=== PATIENT | female | born 1935 | race Caucasian/White ===

== ENCOUNTER → 2018-10-28 | Outpatient (CLI) | payer MEDICARE, MEDICAID ==
--- NOTE | 2018-10-28 15:36 | REP ---
HISTORY: Carotid arterial disease. COMPARISON: None. Patient is status post left endarterectomy. Echogenic material is seen along the carotid arterial fontenot including the imaged portion of the graft. Some of this echogenic material casts an acoustic shadow consistent with calcific deposition. RIGHT LEFT CCA systolic 105.3 cm/s 64.4 cm/s CCA diastolic 15.0 cm/s 23.7 cm/s ICA systolic 63.9 cm/s 79.1 cm/s ICA diastolic 16.0 cm/s 25.0 cm/s ICA/CCA ratio 0.6 1.2 Analysis of the spectral tracing shows no significant spectral broadening. Antegrade flow is seen in both vertebral arteries. According to the NASCET consensus criteria there is less than 50% stenosis of the internal carotid artery bilaterally which incudes the graft portion on the left. Electronically Signed by Main Elkins DO 10/28/2018 04:35 P
== END ==
LOC: M RAD 10:58
PROVIDERS: ATTEND Internal Medicine Cardiovascular Disease
DX: Z86.79 Personal history of other diseases of the circulatory system (principal)

== ENCOUNTER 2019-01-05 14:53 | Emergency (ER) | payer MEDICARE, MEDICAID ==
[~2019-01-05] VITALS: Ht 154.9 cm; Wt 52.3 kg
[2019-01-05] MEDS ORDERED: GABA-843 (15:11)
[2019-01-05] MEDS ORDERED: AMLO5TAB6 (15:11)
[2019-01-05] MEDS ORDERED: POTA10CA32 (15:11)
[2019-01-05] MEDS ORDERED: ISOS30TA4 (15:11)
[2019-01-05] MEDS ORDERED: SPIR1CAP (15:11)
[2019-01-05] MEDS ORDERED: CLOP75TA2 (15:11)
[2019-01-05] MEDS ORDERED: ZYLO300T6 (15:11)
[2019-01-05] MEDS ORDERED: ATOR40TA75 (15:11)
[2019-01-05] MEDS ORDERED: ASPI81TA85 PO (15:11)
[2019-01-05] MEDS ORDERED: FURO20TA2 (15:11)
[2019-01-05] MEDS ORDERED: PROAAER10 (15:11)
[2019-01-05] MEDS ORDERED: LISI10TA4 (15:11)
[2019-01-05] MEDS ORDERED: ASPIRIN 81 MG CHEW TABLET PO ONE (15:30)
[2019-01-05] MEDS ORDERED: NS 1,000 ML IV ONE (15:30)
[2019-01-05 15:38] LABS: VENOUS BASE EXCESS 3.4 (-2.0-2.0); VENOUS HCO3 26.2 MEQ/L (23.0-27.0); VENOUS O2 SATURATION 98.9 % (60.0-80.0); VENOUS PARTIAL PRESSURE CO2 33.4 mmHg (38.0-50.0); VENOUS PARTIAL PRESSURE O2 136.7 mmHg (30.0-50.0); VENOUS PH 7.513 UNITS (7.330-7.430); VENOUS STANDARD HCO3 27.5 MEQ/L; VENOUS TOTAL CO2 27.3 MEQ/L (24.0-28.0)
[2019-01-05 15:41] LABS: BASO % 0.5 % (0.0-1.0); EOS # 0.1 10^3/uL (0.0-0.50); EOS % 1.4 % (0.0-3.0); HEMATOCRIT 27.8 % (36.0-47.0); LYMPH # 0.9 10^3/uL (1.5-4.5); LYMPH % 11.3 % (24.0-44.0); MEAN CORPUSCULAR HEMOGLOBIN 31.3 pg (27.0-33.0); MEAN CORPUSCULAR HGB CONC 32.4 g/dl (32.0-36.5); MEAN CORPUSCULAR VOLUME 96.5 fl (80.0-96.0); MONO # 0.5 10^3/uL (0.0-0.8); NEUTROPHILS # 6.5 10^3/uL (1.8-7.7); NEUTROPHILS % 80.4 % (36.0-66.0); PLATELET COUNT, AUTOMATED 182 10^3/uL (150-450); RED BLOOD COUNT 2.88 10^6/uL (4.00-5.40); WHITE BLOOD COUNT 8.1 10^3/uL (4.0-10.0)
[2019-01-05 15:57] LABS: INR 1.07; PROTHROMBIN TIME 13.6 SECONDS (11.8-14.0)
[2019-01-05 16:14] LABS: ALBUMIN 3.1 GM/DL (3.2-5.2); ALT/SGPT 16 U/L (12-78); BILIRUBIN,DIRECT < 0.1 MG/DL (0.0-0.2); BILIRUBIN,TOTAL 0.2 MG/DL (0.2-1.0); BLOOD UREA NITROGEN 17 MG/DL (7-18); CALCIUM LEVEL 8.3 MG/DL (8.8-10.2); CARBON DIOXIDE LEVEL 27 MEQ/L (21-32); CHLORIDE LEVEL 104 MEQ/L (98-107); CK-MB VALUE MASS 1.9 NG/ML (<3.6); CPK CREATINE PHOSPHOKINASE 44 U/L (26-192); CREATININE FOR GFR 0.87 MG/DL (0.55-1.30); FREE T4 0.99 NG/DL (0.76-1.46); GLOMERULAR FILTRATION RATE > 60.0 (>32); GLUCOSE, FASTING 128 MG/DL (70-100); LIPASE 145 U/L (73-393); MB/CK RELATIVE INDEX 4.32 (< OR =4); SODIUM LEVEL 139 MEQ/L (136-145); TOTAL PROTEIN 5.7 GM/DL (6.4-8.2); TROPONIN I 0.25 NG/ML (< 0.10)
[2019-01-05] MEDS ORDERED: IPRATROPIUM 0.5MG/ALBUTEROL 2.5MG INH SOL UD 3ML (DUONEB)(J7620) NEB ONE (16:15)
[2019-01-05 16:50] LABS: MAGNESIUM LEVEL 1.8 MG/DL (1.8-2.4)
--- NOTE | 2019-01-05 17:01 | ECGEPIP ---
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
--- NOTE | 2019-01-05 17:31 | REP ---
CHEST, SINGLE VIEW: Single view of the chest is performed. There are no prior studies for comparison. There is mild cardiomegaly. There are mildly increased interstitial markings in the lung bases suggesting mild interstitial edema or fibrosis. No consolidating infiltrate is seen. There is calcification and tortuosity of the thoracic aorta. The mediastinal silhouette is otherwise unremarkable. Multiple sternal wires are present. There is a single lead pacemaker. IMPRESSION: Mild cardiomegaly. Mild bibasilar interstitial edema or fibrosis. Electronically Signed by Cuong Acuña MD 01/06/2019 11:09 A
[2019-01-05] MEDS ORDERED: BISOPROLOL FUMARATE 5 MG TAB PO ONE (17:45)
[2019-01-05 18:00] VITALS: BP 139/78
[2019-01-05] MEDS ORDERED: BISO5TAB5 PO (18:23)
[2019-01-05 18:27] VITALS: BP 139/78
== END 2019-01-05 18:35 | disposition home or self-care (01) ==
LOC: M ED 14:53
DX: I11.9 Hypertensive heart disease without heart failure (principal); J44.9 Chronic obstructive pulmonary disease, unspecified; Z79.51 Long term (current) use of inhaled steroids; Z79.82 Long term (current) use of aspirin; Z79.899 Other long term (current) drug therapy; Z88.6 Allergy status to analgesic agent; Z95.0 Presence of cardiac pacemaker; Z95.1 Presence of aortocoronary bypass graft

== ENCOUNTER 2019-01-28 09:06 | Outpatient (CLI) | payer MEDICARE, MEDICAID ==
[~2019-01-28] VITALS: Ht 157.5 cm; Wt 65.5 kg
[2019-01-28] VITALS (8 sets, daily range): BP systolic 108–146; BP diastolic 52–66
[~2019-01-28 09:06] MED LIST: AMLO5TAB6; ASPI81TA85 PO; ATOR40TA75; BISO5TAB5 PO; CLOP75TA2; FURO20TA2; GABA-843; ISOS30TA4; LISI10TA4; POTA10CA32; PROAAER10; SPIR1CAP; ZYLO300T6
[2019-01-28] MEDS ORDERED: IRON SUCROSE 25 MG in NS 50 ML IV ONE (10:00)
[2019-01-28] MEDS ORDERED: IRON SUCROSE 475 MG in NS 250 ML IV ONE (11:00)
[2019-01-28] MEDS ORDERED: ONDANSETRON 4 MG TAB (S0181) PO ONE (14:45)
== END 2019-01-28 15:30 | disposition home or self-care (01) ==
LOC: M INFU 09:06
PROVIDERS: ATTEND Internal Medicine Cardiovascular Disease
DX: D50.9 Iron deficiency anemia, unspecified (principal); Z79.899 Other long term (current) drug therapy
CPT/HCPCS: 96365; 96366; J1756

== ENCOUNTER 2019-04-24 21:08 | Inpatient (IN) | payer MEDICARE, MEDICAID ==
[~2019-04-24] VITALS: Ht 157.5 cm; Wt 50.7 kg
[~2019-04-24 21:08] MED LIST changes: -AMLO5TAB6; +AMLO5TAB6 PO; -ATOR40TA75; +ATOR40TA75 PO; -BISO5TAB5 PO; +BISO5TAB9 PO; -CLOP75TA2; +CLOP75TA2 PO; -FURO20TA2; +FURO20TA2 PO; -GABA-843; +GABA-843 PO; -LISI10TA4; +LISI10TA4 PO; -POTA10CA32; +POTA10CA32 PO; -PROAAER10; +PROAAER10 INH; -SPIR1CAP; +SPIR1CAP INH; -ZYLO300T6; +ZYLO300T6 PO
[2019-04-24] MEDS ORDERED: METF500T13 PO (21:19)
[2019-04-24] MEDS ORDERED: OMEP-218 (21:19)
[2019-04-24] MEDS ORDERED: NS 500 ML IV ONE (21:45)
[2019-04-24 21:56] LABS: BASO % 0.5 % (0.0-1.0); EOS # 0.2 10^3/uL (0.0-0.5); EOS % 2.2 % (0.0-3.0); LYMPH # 1.9 10^3/uL (1.5-5.0); LYMPH % 24.9 % (24.0-44.0); MEAN CORPUSCULAR HEMOGLOBIN 30.9 pg (27.0-33.0); MEAN CORPUSCULAR HGB CONC 32.5 g/dl (32.0-36.5); MONO # 0.5 10^3/uL (0.0-0.8); MONO % 6.9 % (0.0-5.0); NEUTROPHILS # 5.1 10^3/uL (1.5-8.5); NEUTROPHILS % 65.2 % (36.0-66.0); PLATELET COUNT, AUTOMATED 175 10^3/uL (150-450); RED BLOOD COUNT 4.21 10^6/uL (4.00-5.40); WHITE BLOOD COUNT 7.8 10^3/uL (4.0-10.0)
[2019-04-24 22:11] LABS: INR 1.02; PROTHROMBIN TIME 13.1 SECONDS (11.8-14.0)
[2019-04-24 22:12] LABS: PARTIAL THROMBOPLASTIN TIME 26.6 SECONDS (25.0-38.4)
[2019-04-24 22:21] LABS: BLOOD UREA NITROGEN 19 MG/DL (7-18); CALCIUM LEVEL 9.8 MG/DL (8.8-10.2); CARBON DIOXIDE LEVEL 29 MEQ/L (21-32); CHLORIDE LEVEL 103 MEQ/L (98-107); CREATININE FOR GFR 0.77 MG/DL (0.55-1.30); GLOMERULAR FILTRATION RATE > 60.0 (>32); GLUCOSE, FASTING 115 MG/DL (70-100); POTASSIUM SERUM 4.3 MEQ/L (3.5-5.1); SODIUM LEVEL 141 MEQ/L (136-145)
[2019-04-24 22:22] LABS: ALBUMIN 3.7 GM/DL (3.2-5.2); ALT/SGPT 15 U/L (12-78); BILIRUBIN,DIRECT < 0.1 MG/DL (0.0-0.2); BILIRUBIN,TOTAL 0.3 MG/DL (0.2-1.0); CK-MB VALUE MASS 1.1 NG/ML (<3.6); CPK CREATINE PHOSPHOKINASE 49 U/L (26-192); LIPASE 155 U/L (73-393); MB/CK RELATIVE INDEX 2.24 (< OR =4); TROPONIN I 0.02 NG/ML (< 0.10)
[2019-04-24] MEDS ORDERED: NS 1,000 ML IV SCH (23:30)
[2019-04-24] MEDS ORDERED: NITR0.4S14 SL (23:33)
[2019-04-24] MEDS ORDERED: ACET-897 PO (23:33)
[2019-04-24] MEDS ORDERED: BISO5TAB9 PO (23:33)
[2019-04-24] MEDS ORDERED: MOVE1TAB PO (23:34)
[2019-04-25] VITALS (7 sets, daily range): BP systolic 125–169; BP diastolic 57–75
--- NOTE | 2019-04-25 00:38 | HPEPDOC ---
[facility] Medical History & Physical Date of Admission Apr 24, 2019 Date of Service: Apr 24, 2019 Attending Physician: JONNY DAWSON MD History and Physical CHIEF COMPLAINT: GI bleed HISTORY OF PRESENT ILLNESS: This is a 83-year-old female with a past medical history of iron deficiency anemia, diabetes, CAD, hypertension, COPD, AICD placement, cardiac stents, last month was September 2018. She is currently on aspirin and Plavix. This afternoon she felt like she had to use the bathroom, during her attempt to use the bathroom, she noticed that she had norma red blood per rectum. She denied any abdominal pain, admits to history of occasional constipation, denies any recent dietary changes, denies dizziness, denies nausea, denies vomiting, denies hemoptysis, denies lightheadedness, denies palpitation, denies any overt bleeding, and denies any bruising. ROS CONSTITUTIONAL: No fevers, denies chills, denies weight loss, denies lethargy HEENT: No rhinorrhea, no itchy eyes, no congesion, CARDIOVASCULAR: No murmurs no palpitations and arrhythmias RESPIRATORY: Not cough, No SOB, no issues to report GASTROINTESTINAL: No nausea, no vomiting, no difficulty swallowing, no pain with eating, no diarrhea, one episode of norma red blood per rectum HEMATOLOGICAL: Blood per rectum GENITOURINARY:No Issues HEMATOLOGIC/LYMPHATIC: No swelling PAST MEDICAL / SURGICAL HISTORY: GERD Chronic hypertension, Iron deficiency anemia Diabetes Chronic CAD / status post cardiac stents COPD s/p AICD / pacemaker ? Glaucoma s/p endarterectomy s/p cataracts surgery s/p cardiac bypass SOCIAL HISTORY: Lives at home with her daughter FAMILY HISTORY: HTN CAD TB ALLERGIES: Please see below. HOME MEDICATIONS: Please see below. PE VITALS: See Below GENERAL APPEARANCE: Alert no acute distress. , Pleasant, elderly female SKIN: Warm, well perfused. Non-pale LUNGS: Clear to auscultation bilaterally. HEART: Normal S1, S2. cardiac murmurs ABDOMEN: Soft. No masses. Bowel sounds are present. TRUNK/SPINE:Straight. EXTREMITIES: Moves all extremities equally. No gross deformities. PULSES: 2+ upper and lower extremity . LABORATORY DATA: See below. MICROBIOLOGY: Please see below. ASSESSMENT/PLAN: This is an 83-year-old female with a past medical history significant for iron deficiency anemia, coronary artery disease, chronic HTN, DM, COPD and GERD who is admitted for management of a GI bleed. 1. Upper GI bleed -Patient reported melena earlier in the week -Does not appear to have ongoing active bleeding -Hg and MAP are stable -Monitor H&H. -Transfuse necessary 2.Chronic Hypertension. Continue home medication 3.Chronic Coronary artery disease -status post cardiac stents in September of 218 -Continue Plavix and aspirin 4. COPD -Continue home medications DVT prophylaxis w TEDs Disposition pending clinical course Vital Signs Vital Signs Date Time Temp Pulse Resp B/P (MAP) Pulse Ox O2 Delivery O2 Flow Rate FiO2 04/24/19 21:50 04/24/19 21:08 97.0 69 18 97 Room Air Laboratory Data Labs 24H Laboratory Tests 2 04/24/19 21:49: Immature Granulocyte % (Auto) 0.3, Neutrophils (%) (Auto) 65.2, Lymphocytes (%) (Auto) 24.9, Monocytes (%) (Auto) 6.9H, Eosinophils (%) (Auto) 2.2, Basophils (%) (Auto) 0.5, Neutrophils # (Auto) 5.1, Lymphocytes # (Auto) 1.9, Monocytes # (Auto) 0.5, Eosinophils # (Auto) 0.2, Basophils # (Auto) 0.0, Nucleated Red Blood Cells % (auto) 0.0, Prothrombin Time 13.1, Prothromb Time International Ratio 1.02, Activated Partial Thromboplast Time 26.6, Anion Gap 9, Glomerular Filtration Rate > 60.0, Calcium Level 9.8, Total Bilirubin 0.3, Direct Bilirubin < 0.1, Aspartate Amino Transf (AST/SGOT) 15, Alanine Aminotransferase (ALT/SGPT) 15, Alkaline Phosphatase 124H, Total Creatine Kinase 49, Creatine Kinase MB 1.1, Creatine Kinase MB Relative Index 2.24, Troponin I 0.02, Total Protein 7.0, Albumin 3.7, Albumin/Globulin Ratio 1.12, Lipase 155 CBC/BMP Laboratory Tests 04/24/19 21:49 Home Medications Scheduled Allopurinol (Zyloprim) 300 Mg Tablet, 300 MG PO DAILY AT LUNCH Amlodipine Besylate (Amlodipine Besylate) 5 Mg Tablet, 5 MG PO QPM AT DINNER Aspirin (Aspir 81) 81 Mg Tablet.dr, 81 MG PO DAILY Atorvastatin Calcium (Atorvastatin Calcium) 40 Mg Tablet, 40 MG PO QPM Bisoprolol Fumarate (Bisoprolol Fumarate) 5 Mg Tablet, 5 MG PO DAILY AT LUNCH Clopidogrel Bisulfate (Clopidogrel) 75 Mg Tablet, 75 MG PO DAILY AT LUNCH Docusate Sodium (Docusate Sodium) 100 Mg Capsule, 100 MG PO DAILY for constipation Furosemide (Furosemide) 20 Mg Tablet, 20 MG PO BID BREAKFAST AND DINNER Glucosam/Chond/Hyalu/Cf Borate (Move Free Joint Health Tablet) 1 Each Tablet, 1 TAB PO DAILY Lisinopril (Lisinopril) 10 Mg Tablet, 10 MG PO DAILY AT LUNCH Metformin HCl (Metformin HCl) 500 Mg Tablet, 500 MG PO DAILY Potassium Chloride (Potassium Chloride) 10 Meq Capsule.er, 10 MEQ PO BID BREAKFAST AND DINNER Sennosides (Senna) 8.6 Mg Tablet, 2 TAB PO QHS for constipation Tiotropium [place] (Spiriva) 18 Mcg Cap.w.dev, 1 PUFF INH DAILY Scheduled PRN Acetaminophen (Tylenol Extra Strength) 500 Mg Tablet, 500 MG PO QHS PRN for PAIN TAKES WITH GABAPENTIN Albuterol Sulfate (Proair Hfa) 8.5 Gm Hfa.aer.ad, 2 PUFF INH Q4H PRN for SOB/WHEEZING Gabapentin (Gabapentin) 300 Mg Capsule, 600 MG PO QHS PRN for PAIN TAKES ONE OR TWO CAPS WITH ACETAMINOPHEN PRN Nitroglycerin (Nitroglycerin) 0.4 Mg Tab.subl, 0.4 MG SL Q5MP PRN for CHEST PAIN Allergies Coded Allergies: celecoxib (Verified Adverse Reaction, Intermediate, 'goes out of it', 01/28/19) GME ATTESTATION GME ATTESTATION My faculty preceptor for this patient encounter was physically present during the encounter and was fully available. All aspects of the patient interview, examination, medical decision making process, and medical care plan development were reviewed and approved by the faculty preceptor. The faculty preceptor is aware and concurs with the plan as stated in the body of this note and will attest to such by his/her cosignature. ATTENDING NOTE I examined Ms. Florez at 11:45 PM on APR 24 and discussed the case with Dr. Graciela James. This is an 80-year-old female with a history of iron deficiency anemia who has previously required transfusions. Her hemoglobin was 13. She was informed that she may need a colonoscopy to manage the lower GI bleed; she would like to discuss this with her family. 1. Lower GI Bleed She has a history of iron deficiency anemia and has required transfusions in the past. The differential diagnosis for lower GI bleed includes: diverticulosis, angiodysplasia's (most common cause of small-bowel bleeding inolderpatients), AVM, polyps, colorectal cancer, IBS, hemorrhoids, anal fissure & less likely ischemic colitis The [place] score to predict risk of readmission for GI bleed =12 points = 87- 89 % Probability of safe discharge (absence of rebleeding, blood transfusion, therapeutic intervention, 28 day readmission, or ). Discharge NOT recommended. Consider admission with further workup and resuscitation as necessary. Plan: admit to PCU / CLD w IVF pending the patient's decision as to whether she wants a general surgery consult for colonoscopy/ telemetry / f/u orthostats, serial Hg / hold iron 2. Chronic CAD. Status post placement of drug stents in September 2018 Plan: c/w DAPT for now 3. NIDDM Unable to track down and A1c in our system Plan: f/u accuchecks & A1C / hypoglycemia protocol / sliding scale insulin / hold oral anti-glycemics 4. Uncontrolled HTN Plan: resume home meds / IV metoprolol PRN for SBP >180 MATI CARVALHO DO Apr 24, 2019 23:32 JONNY DAWSON MD Apr 25, 2019 01:53
[2019-04-25] MEDS ORDERED: ALBUTEROL 90 MCG/ACT 8GM HFA INHALER INH PRN (00:45)
[2019-04-25] MEDS ORDERED: NITROGLYCERIN 0.4 MG SUBL TABLET SL PRN (00:45)
[2019-04-25] MEDS ORDERED: GABAPENTIN 300 MG CAP PO PRN (00:45)
[2019-04-25] MEDS ORDERED: GLUCOSE 4 GM CHEW TABLET PO PRN (02:15)
[2019-04-25] MEDS ORDERED: METOPROLOL TART 25 MG TABLET PO PRN (02:15)
[2019-04-25] MEDS ORDERED: GLUCAGON FOR INJ 1 MG VIAL (J1610) SC PRN (02:15)
[2019-04-25] MEDS ORDERED: DEXTROSE 50% 50 ML SYRINGE IV PRN (02:15)
[2019-04-25 05:57] LABS: HEMATOCRIT 35.6 % (36.0-47.0); HEMOGLOBIN 11.5 g/dl (12.0-15.5); MEAN CORPUSCULAR HEMOGLOBIN 30.7 pg (27.0-33.0); MEAN CORPUSCULAR HGB CONC 32.3 g/dl (32.0-36.5); MEAN CORPUSCULAR VOLUME 95.2 fl (80.0-96.0); PLATELET COUNT, AUTOMATED 155 10^3/uL (150-450); RED BLOOD COUNT 3.74 10^6/uL (4.00-5.40); WHITE BLOOD COUNT 6.3 10^3/uL (4.0-10.0)
[2019-04-25 06:14] LABS: HEMOGLOBIN A1c 7.1 %
[2019-04-25 06:15] LABS: BLOOD UREA NITROGEN 18 MG/DL (7-18); CALCIUM LEVEL 9.1 MG/DL (8.8-10.2); CARBON DIOXIDE LEVEL 30 MEQ/L (21-32); CHLORIDE LEVEL 110 MEQ/L (98-107); CREATININE FOR GFR 0.63 MG/DL (0.55-1.30); GLOMERULAR FILTRATION RATE > 60.0 (>32); GLUCOSE, FASTING 102 MG/DL (70-100); SODIUM LEVEL 143 MEQ/L (136-145)
[2019-04-25] MEDS: TIOTROPIUM INHALER/CAPSULE (SPIRIVA) INH SCH (07:55)
[2019-04-25] MEDS ORDERED: FUROSEMIDE 20 MG TAB PO SCH (09:00)
[2019-04-25] MEDS ORDERED: metFORMIN (GLUCOPHAGE) 500 MG TAB PO SCH (09:00)
[2019-04-25] MEDS: HumaLOG INSULIN (NovoLOG) PER UNIT SC SCH ×3 (09:01→17:07)
[2019-04-25] MEDS: ASPIRIN 81 MG ENTERIC TAB PO SCH (09:01)
[2019-04-25] MEDS: GASTROGRAFIN SOLUTION 30ML PO SCH ×2 (09:01→09:58)
[2019-04-25] MEDS ORDERED: PERCOCET 5MG/325MG TAB PO PRN (09:30)
[2019-04-25] MEDS ORDERED: LR 1,000 ML IV SCH (09:30)
[2019-04-25] MEDS ORDERED: METOCLOPRAMIDE INJ 10MG/2ML VIAL (J2765) IV PRN (09:30)
[2019-04-25] MEDS ORDERED: fentaNYL 100 MCG/2 ML INJECTION (J3010) IV PRN (09:30)
[2019-04-25] MEDS ORDERED: ONDANSETRON 4MG/2ML VIAL (J2405) IV PRN (09:30)
--- NOTE | 2019-04-25 09:40 | ECGEPIP ---
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
[2019-04-25] MEDS ORDERED: CLOPIDOGREL 75 MG TAB PO SCH (12:00)
[2019-04-25] MEDS: ALLOPURINOL 300 MG TAB PO SCH (13:08)
[2019-04-25] MEDS: LISINOPRIL 10 MG TAB PO SCH (13:08)
[2019-04-25] MEDS: BISOPROLOL FUMARATE 5 MG TAB PO SCH (13:09)
[2019-04-25 14:13] LABS: HEMATOCRIT 32.1 % (36.0-47.0); HEMOGLOBIN 10.2 g/dl (12.0-15.5)
--- NOTE | 2019-04-25 14:18 | REP ---
CT ABDOMEN/PELVIS WITH ORAL CONTRAST, NO IV CONTRAST: CT abdomen/pelvis performed without IV contrast. Oral contrast was administered. Sagittal and coronal reconstruction images are performed. There is mild cardiomegaly. There is mild bibasilar fibrotic changes in the visualized lung bases. The liver is grossly unremarkable. Gallbladder is grossly unremarkable. Spleen is normal in size. No mass is seen of the adrenal glands. The pancreas is grossly unremarkable. Kidneys demonstrate no stone or hydronephrosis. There appears to be a cyst in the posterior left kidney approximately 1.3 cm in diameter. There is moderate atherosclerotic calcification of the abdominal aorta without aneurysm. I see no adenopathy. There is no free air or free fluid. I see no bowel wall thickening. The appendix is normal. There is extensive sigmoid diverticulosis without evidence of acute diverticulitis. No gross pelvic mass is seen. Urinary bladder is grossly unremarkable. There are degenerative changes of the spine. IMPRESSION: Sigmoid diverticulosis. Mild cardiomegaly. No acute findings in the abdomen or pelvis. Electronically Signed by Cuong Acuña MD 04/25/2019 05:16 P
--- NOTE | 2019-04-25 15:39 | IPNPDOC ---
Subjective Date Seen The patient was seen on 04/25/19. Subjective Chief Complaint/HPI Says did not have any further bloody bowel movements after coming to the hospital. Complains of a little soreness ont eh left lower quadrannt and hypogastrium. No fever or chills, no nausea or vomiting. Objective Physical Examination General Exam: Positive: Alert, Cooperative, No Acute Distress Eye Exam: Positive: PERRLA, Conjunctiva & lids normal, EOMI; Negative: Sclera icteric ENT Exam: Positive: Atraumatic, Mucous membr. moist/pink, Pharynx Normal Neck Exam: Positive: Supple; Negative: JVD, thyromegaly Chest Exam: Positive: Clear to auscultation, Diminished; Negative: Rales, Rhonchi, Wheezing Heart Exam: Positive: Rate Normal, Regular Rhythm, Normal S1, Normal S2; Negative: Murmurs, Rubs Abdomen Exam: Positive: Normal bowel sounds, Soft; Negative: Tenderness, Hepatospenomegaly Extremity Exam: Negative: Clubbing, Cyanosis, Edema Skin Exam: Positive: Nl turgor and temperature; Negative: Rash, Breakdown Neuro Exam: Positive: Normal Speech, Strength at 5/5 X4 ext, Normal Tone Psych Exam: Positive: Memory Intact, Oriented x 3 Assessment /Plan Assessment 83-year-old female wtih PMH of GERD, hypertension, iron deficiency anemia, diabetes, CAD s/p CABG and stents, s/p AICD, Carotid artery disease s/p bilateral carotid endarterectomy, COPD, glaucoma, cataract surgery presented with 1 episode of bright red blood per rectum. Patient has a history of iron deficiency anemia. She had recieved IV iron int he past which she believes had meds her very constipated in mar 2019. She believes her last stent was placed in mar this year. She was admitted for Lower GIB. GI bleed possibly diverticular bleed. HH stable. will stop IVF. no further episodes advance diet to full liquids. CT abdomen and pelvis shows extensive diverticulosis of sigmoid colon. Transfuse if necessary Will continue patient's aspirin due to cardiac stents. Will hold plavix for 2 days. If further episodes of bleeding or hh drops will consult surgery or GI for EGD and colonoscopy. She has never had a colonoscopy so she should get one . if no further bleeding she should get one as an outpatient. Hypertension. Continue home meds lisinopril, amlodipine and bisoprolol. Cardiac stents. Continue aspirin, hold plavix for 2 days continue betablocker and statin Emphysema Continue medications albuterol prn GERD continue PPI Gout on allopurinol Diabetes with neuropathy hold metformin continue lispro as per sliding scale and gabapentin Plan/VTE VTE Prophylaxis Ordered?: Yes VS, I&O, 24H, Fishbone Vital Signs/I&O Vital Signs Date Time Temp Pulse Resp B/P (MAP) Pulse Ox O2 Delivery O2 Flow Rate FiO2 04/25/19 14:00 98.4 63 16 125/57 (79) 96 Room Air I&O- Last 24 Hours up to 6 AM 04/25/19 06:00 Intake Total 500 ml Output Total 300 ml Balance 200 ml Laboratory Data 24H LABS Laboratory Tests 2 04/24/19 21:49: Immature Granulocyte % (Auto) 0.3, Neutrophils (%) (Auto) 65.2, Lymphocytes (%) (Auto) 24.9, Monocytes (%) (Auto) 6.9H, Eosinophils (%) (Auto) 2.2, Basophils (%) (Auto) 0.5, Neutrophils # (Auto) 5.1, Lymphocytes # (Auto) 1.9, Monocytes # (Auto) 0.5, Eosinophils # (Auto) 0.2, Basophils # (Auto) 0.0, Nucleated Red Blood Cells % (auto) 0.0, Prothrombin Time 13.1, Prothromb Time International Ratio 1.02, Activated Partial Thromboplast Time 26.6, Anion Gap 9, Glomerular Filtration Rate > 60.0, Calcium Level 9.8, Total Bilirubin 0.3, Direct Bilirubin < 0.1, Aspartate Amino Transf (AST/SGOT) 15, Alanine Aminotransferase (ALT/SGPT) 15, Alkaline Phosphatase 124H, Total Creatine Kinase 49, Creatine Kinase MB 1.1, Creatine Kinase MB Relative Index 2.24, Troponin I 0.02, Total Protein 7.0, Albumin 3.7, Albumin/Globulin Ratio 1.12, Lipase 155 04/25/19 05:39: Nucleated Red Blood Cells % (auto) 0.0, Anion Gap 3L, Glomerular Filtration Rate > 60.0, Calcium Level 9.1, Estimated Mean Plasma Glucose 157H, Hemoglobin A1c 7.1 04/25/19 12:02: Bedside Glucose (Misc Panel) 76L CBC/BMP Laboratory Tests 04/24/19 21:49 04/25/19 00:56 04/25/19 05:39 04/25/19 14:04 NAIF CEBALLOS MD Apr 25, 2019 15:39
[2019-04-25] MEDS ORDERED: ATORVASTATIN 20 MG TAB PO SCH (18:00)
[2019-04-25] MEDS ORDERED: amLODIPine 5 MG TAB PO SCH (18:00)
[2019-04-25] MEDS ORDERED: HumaLOG INSULIN (NovoLOG) PER UNIT SC SCH (21:00)
[2019-04-25 21:56] LABS: HEMATOCRIT 32.2 % (36.0-47.0)
[2019-04-26 02:00] VITALS: BP 118/61
[2019-04-26 06:00] VITALS: BP 128/54
[2019-04-26 06:11] LABS: BASO % 0.7 % (0.0-1.0); EOS # 0.3 10^3/uL (0.0-0.5); EOS % 4.4 % (0.0-3.0); HEMATOCRIT 32.7 % (36.0-47.0); HEMOGLOBIN 10.3 g/dl (12.0-15.5); LYMPH # 1.6 10^3/uL (1.5-5.0); LYMPH % 28.8 % (24.0-44.0); MEAN CORPUSCULAR HEMOGLOBIN 30.7 pg (27.0-33.0); MEAN CORPUSCULAR HGB CONC 31.5 g/dl (32.0-36.5); MEAN CORPUSCULAR VOLUME 97.6 fl (80.0-96.0); MONO # 0.5 10^3/uL (0.0-0.8); NEUTROPHILS # 3.3 10^3/uL (1.5-8.5); NEUTROPHILS % 57.7 % (36.0-66.0); PLATELET COUNT, AUTOMATED 136 10^3/uL (150-450); RED BLOOD COUNT 3.35 10^6/uL (4.00-5.40); WHITE BLOOD COUNT 5.6 10^3/uL (4.0-10.0)
[2019-04-26 06:30] LABS: BLOOD UREA NITROGEN 11 MG/DL (7-18); CALCIUM LEVEL 8.8 MG/DL (8.8-10.2); CARBON DIOXIDE LEVEL 30 MEQ/L (21-32); CHLORIDE LEVEL 112 MEQ/L (98-107); CREATININE FOR GFR 0.57 MG/DL (0.55-1.30); GLOMERULAR FILTRATION RATE > 60.0 (>32); GLUCOSE, FASTING 102 MG/DL (70-100); POTASSIUM SERUM 3.9 MEQ/L (3.5-5.1); SODIUM LEVEL 144 MEQ/L (136-145)
[2019-04-26] MEDS: HumaLOG INSULIN (NovoLOG) PER UNIT SC SCH ×2 (07:30→12:00)
[2019-04-26] MEDS: ASPIRIN 81 MG ENTERIC TAB PO SCH (08:32)
[2019-04-26] MEDS: TIOTROPIUM INHALER/CAPSULE (SPIRIVA) INH SCH (08:39)
[2019-04-26 10:00] VITALS: BP 129/68
[2019-04-26] MEDS ORDERED: DOCU100C16 PO (10:55)
[2019-04-26] MEDS ORDERED: SENN1TAB8 PO (10:55)
[2019-04-26] MEDS: BISOPROLOL FUMARATE 5 MG TAB PO SCH (12:03)
[2019-04-26] MEDS: ALLOPURINOL 300 MG TAB PO SCH (12:03)
[2019-04-26 12:04] VITALS: BP 129/68
[2019-04-26] MEDS: LISINOPRIL 10 MG TAB PO SCH (12:04)
--- NOTE | 2019-04-26 14:06 | DS.PDOC ---
Discharge Summary General Date of Admission Apr 24, 2019 at 23:23 Date of Discharge 04/26/19 Discharge Summary PROCEDURES PERFORMED DURING STAY: [None]. DISCHARGE DIAGNOSES: Lower GIB probably diverticular bleeding SECONDARY DIAGNOSIS: GERD, hypertension, iron deficiency anemia, diabetes, CAD s/p CABG and stents, s/p AICD, Carotid artery disease s/p bilateral carotid endarterectomy, COPD, glaucoma, cataract surgery COMPLICATIONS/CHIEF COMPLAINT: Lower Gi Bleed. HISTORY OF PRESENT ILLNESS: See History and physical HOSPITAL COURSE: 83-year-old female wtih PMH of GERD, hypertension, iron deficie ncy anemia, diabetes, CAD s/p CABG and stents, s/p AICD, Carotid artery disease s/p bilateral carotid endarterectomy, COPD, glaucoma, cataract surgery presented with 1 episode of bright red blood per rectum. Patient has a history of iron deficiency anemia. She had received IV iron in the past which she believes had meds her very constipated in mar 2019. She believes her last stent was placed in mar this year. She was admitted for Lower GIB. She had a CT abdomen and pelvis done with IV and oral contrast which showed that she has extensive diverticulosis of the sigmoid colon. She did not have any further bleeding episodes after coming to the hospital. Her HH remained stable for 48 hours. It was presumed that this was diverticular bleeding. however as the pateint never had a colonoscopy in her life she should be referred for an outpatient colonoscopy to complete the evaluation for GIB. GI bleed Probably diverticular bleed. HH stable. will stop IVF. no further episodes soft diet CT abdomen and pelvis shows extensive diverticulosis of sigmoid colon. Will continue patient's aspirin and plavix due to present of drug eluting cardiac stents. She has never had a colonoscopy so she should get one stool softeners Hypertension. Continue home meds lisinopril, amlodipine and bisoprolol. Cardiac stents. Continue aspirin and plavix continue betablocker and statin Emphysema Continue medications albuterol prn GERD continue PPI Gout on allopurinol Diabetes with neuropathy hold metformin continue lispro as per sliding scale and gabapentin DISCHARGE MEDICATIONS: Please see below. ALLERGIES: Please see below. PHYSICAL EXAMINATION ON DISCHARGE: VITAL SIGNS: Please see below. General Exam: Positive: Alert, Cooperative, No Acute Distress Eye Exam: Positive: PERRLA, Conjunctiva & lids normal, EOMI; Negative: Sclera icteric ENT Exam: Positive: Atraumatic, Mucous membr. moist/pink, Pharynx Normal Neck Exam: Positive: Supple; Negative: JVD, thyromegaly Chest Exam: Positive: Clear to auscultation, Diminished; Negative: Rales, Rhonchi, Wheezing Heart Exam: Positive: Rate Normal, Regular Rhythm, Normal S1, Normal S2; Negative: Murmurs, Rubs Abdomen Exam: Positive: Normal bowel sounds, Soft; Negative: Tenderness, Hepatospenomegaly Extremity Exam: Negative: Clubbing, Cyanosis, Edema Skin Exam: Positive: Nl turgor and temperature; Negative: Rash, Breakdown Neuro Exam: Positive: Normal Speech, Strength at 5/5 X4 ext, Normal Tone Psych Exam: Positive: Memory Intact, Oriented x 3 LABORATORY DATA: Please see below. ACTIVITY: [As tolerated]. DIET: As tolerated DISCHARGE PLAN: DISPOSITION: Home, Self-Care. DISCHARGE INSTRUCTIONS: PMD in 1 week Needs referral for Colonoscopy DISCHARGE CONDITION: [Stable]. TIME SPENT ON DISCHARGE: 35 minutes. Vital Signs/I&Os Vital Signs Date Time Temp Pulse Resp B/P (MAP) Pulse Ox O2 Delivery O2 Flow Rate FiO2 04/26/19 12:04 129/68 04/26/19 12:03 60 04/26/19 10:00 98.5 16 93 Room Air I&O- Last 24 Hours up to 6 AM 04/26/19 06:00 Intake Total 3535 ml Output Total 1650 ml Balance 1885 ml Laboratory Data Labs 24H Laboratory Tests 2 04/25/19 16:49: Bedside Glucose (Misc Panel) 102 04/26/19 05:39: Immature Granulocyte % (Auto) 0.4, Neutrophils (%) (Auto) 57.7, Lymphocytes (%) (Auto) 28.8, Monocytes (%) (Auto) 8.0H, Eosinophils (%) (Auto) 4.4H, Basophils (%) (Auto) 0.7, Neutrophils # (Auto) 3.3, Lymphocytes # (Auto) 1.6, Monocytes # (Auto) 0.5, Eosinophils # (Auto) 0.3, Basophils # (Auto) 0.0, Nucleated Red Blood Cells % (auto) 0.0, Anion Gap 2L, Glomerular Filtration Rate > 60.0, Calcium Level 8.8 CBC/BMP Laboratory Tests 04/25/19 14:04 10/26/19 21:48 04/26/19 05:39 FSBS Laboratory Tests Test 04/25/19 16:49 Range/Units Bedside Glucose (Misc Panel) 102 83-110 MG/DL Discharge Medications Scheduled Allopurinol (Zyloprim) 300 Mg Tablet, 300 MG PO DAILY, (Reported) AT LUNCH Amlodipine Besylate (Amlodipine Besylate) 5 Mg Tablet, 5 MG PO QPM, (Reported) AT DINNER Aspirin (Aspir 81) 81 Mg Tablet.dr, 81 MG PO DAILY, (Reported) Atorvastatin Calcium (Atorvastatin Calcium) 40 Mg Tablet, 40 MG PO QPM, (Repo rted) Bisoprolol Fumarate (Bisoprolol Fumarate) 5 Mg Tablet, 5 MG PO DAILY, (Reported) AT LUNCH Clopidogrel Bisulfate (Clopidogrel) 75 Mg Tablet, 75 MG PO DAILY, (Reported) AT LUNCH Docusate Sodium (Docusate Sodium) 100 Mg Capsule, 100 MG PO DAILY for constipation Furosemide (Furosemide) 20 Mg Tablet, 20 MG PO BID, (Reported) BREAKFAST AND DINNER Glucosam/Chond/Hyalu/Cf Borate (Move Free Joint Health Tablet) 1 Each Tablet, 1 TAB PO DAILY, (Reported) Lisinopril (Lisinopril) 10 Mg Tablet, 10 MG PO DAILY, (Reported) AT LUNCH Metformin HCl (Metformin HCl) 500 Mg Tablet, 500 MG PO DAILY, (Reported) Potassium Chloride (Potassium Chloride) 10 Meq Capsule.er, 10 MEQ PO BID, (Reported) BREAKFAST AND DINNER Sennosides (Senna) 8.6 Mg Tablet, 2 TAB PO QHS for constipation Tiotropium [place] (Spiriva) 18 Mcg Cap.w.dev, 1 PUFF INH DAILY, (Reported) Scheduled PRN Acetaminophen (Tylenol Extra Strength) 500 Mg Tablet, 500 MG PO QHS PRN for PAIN, (Reported) TAKES WITH GABAPENTIN Albuterol Sulfate (Proair Hfa) 8.5 Gm Hfa.aer.ad, 2 PUFF INH Q4H PRN for SOB/WHEEZING, (Reported) Gabapentin (Gabapentin) 300 Mg Capsule, 600 MG PO QHS PRN for PAIN, (Reported) TAKES ONE OR TWO CAPS WITH ACETAMINOPHEN PRN Nitroglycerin (Nitroglycerin) 0.4 Mg Tab.subl, 0.4 MG SL Q5MP PRN for CHEST PAIN, (Reported) Allergies Coded Allergies: celecoxib (Verified Adverse Reaction, Intermediate, 'goes out of it', 01/28/19) NAIF CEBALLOS MD Apr 26, 2019 14:06
== END 2019-04-26 12:53 | disposition home or self-care (01) | DRG 379 ==
LOC: M ED 21:08 → M ED INP 23:23 → M MSPAV 04-25 00:45
PROVIDERS: ADMIT Internal Medicine; ATTEND Internal Medicine
DX: K57.31 Diverticulosis of large intestine without perforation or abscess with bleeding (principal); D50.9 Iron deficiency anemia, unspecified; E11.40 Type 2 diabetes mellitus with diabetic neuropathy, unspecified; I25.10 Atherosclerotic heart disease of native coronary artery without angina pectoris; I10 Essential (primary) hypertension; J44.9 Chronic obstructive pulmonary disease, unspecified; Z95.810 Presence of automatic (implantable) cardiac defibrillator; Z95.5 Presence of coronary angioplasty implant and graft; Z79.82 Long term (current) use of aspirin; Z79.02 Long term (current) use of antithrombotics/antiplatelets; H40.9 Unspecified glaucoma; Z98.49 Cataract extraction status, unspecified eye; Z79.84 Long term (current) use of oral hypoglycemic drugs; Z79.899 Other long term (current) drug therapy; K21.9 Gastro-esophageal reflux disease without esophagitis

== ENCOUNTER 2021-11-28 18:12 | Inpatient (IN) | payer MEDICARE, MEDICAID ==
[~2021-11-28] VITALS: Ht 157.5 cm; Wt 60.3 kg
[~2021-11-28 18:12] MED LIST changes: +ACET-897 PO; +AMLO1TAB24 PO; -AMLO5TAB6 PO; -ASPI81TA85 PO; +ASPI81TA86 PO; +BISO5TAB14 PO; -BISO5TAB9 PO; +DOCU100C16 PO; +GABA-282 PO; -GABA-843 PO; +ISOS1TAB35; -ISOS30TA4; +LISI10TA22 PO; -LISI10TA4 PO; +METF500T13 PO; +MOVE1TAB PO; +NITR0.4S14 SL; +OMEP-173; +SENN-80 PO
[2021-11-28 18:59] LABS: VENOUS BASE EXCESS 10.6 (-2.0-2.0); VENOUS HCO3 38.3 MEQ/L (23.0-27.0); VENOUS O2 SATURATION 81.6 % (60.0-80.0); VENOUS PARTIAL PRESSURE CO2 65.7 mmHg (38.0-50.0); VENOUS PARTIAL PRESSURE O2 45.6 mmHg (30.0-50.0); VENOUS PH 7.383 UNITS (7.330-7.430); VENOUS TOTAL CO2 40.3 MEQ/L (24.0-28.0)
[2021-11-28 19:03] LABS: BASO % 0.5 % (0.0-1.0); EOS # 0.1 10^3/uL (0.0-0.5); EOS % 0.8 % (0.0-3.0); HEMATOCRIT 40.3 % (36.0-47.0); LYMPH # 0.8 10^3/uL (1.5-5.0); LYMPH % 13.3 % (24.0-44.0); MEAN CORPUSCULAR HEMOGLOBIN 28.4 pg (27.0-33.0); MEAN CORPUSCULAR HGB CONC 29.8 g/dl (32.0-36.5); MEAN CORPUSCULAR VOLUME 95.3 fl (80.0-96.0); MONO # 0.5 10^3/uL (0.0-0.8); NEUTROPHILS # 4.8 10^3/uL (1.5-8.5); NEUTROPHILS % 76.9 % (36.0-66.0); PLATELET COUNT, AUTOMATED 213 10^3/uL (150-450); RED BLOOD COUNT 4.23 10^6/uL (4.00-5.40); WHITE BLOOD COUNT 6.2 10^3/uL (4.0-10.0)
[2021-11-28 19:21] LABS: INR 1.09; PROTHROMBIN TIME 14.5 SECONDS (12.7-14.5)
[2021-11-28 19:29] LABS: CK-MB VALUE MASS 2.8 NG/ML (<3.6); MB/CK RELATIVE INDEX 5.71 (< OR =4)
[2021-11-28 19:37] LABS: ALT/SGPT 15 U/L (12-78); BILIRUBIN,DIRECT 0.3 MG/DL (0.0-0.2); BILIRUBIN,TOTAL 0.5 MG/DL (0.2-1.0); BLOOD UREA NITROGEN 15 MG/DL (7-18); CALCIUM LEVEL 8.8 MG/DL (8.8-10.2); CARBON DIOXIDE LEVEL 33 MEQ/L (21-32); CHLORIDE LEVEL 103 MEQ/L (98-107); CREATININE FOR GFR 0.86 MG/DL (0.55-1.30); GLOMERULAR FILTRATION RATE > 60.0 (>32); GLUCOSE, FASTING 122 MG/DL (70-100); NT-PRO BNP 10753 PG/ML (<450); POTASSIUM SERUM 4.2 MEQ/L (3.5-5.1); SODIUM LEVEL 137 MEQ/L (136-145); TOTAL PROTEIN 6.1 GM/DL (6.4-8.2)
[2021-11-28] MEDS ORDERED: FUROSEMIDE 100MG/10ML VIAL (J1940) IV ONE (20:00)
[2021-11-28] MEDS: INSULIN LISPRO (NovoLOG) PER UNIT SC SCH (21:00)
[2021-11-28] MEDS: DOCUSATE SODIUM 100MG CAPSULE PO SCH (21:00)
[2021-11-28] MEDS ORDERED: ACETAMINOPHEN TAB 650MG DOSE (2X325MG) PO PRN (21:25)
[2021-11-28] MEDS ORDERED: BENZONATATE 100MG CAPSULE PO PRN (21:30)
[2021-11-28] MEDS ORDERED: PANTOPRAZOLE 40MG VIAL IV ONE (21:35)
[2021-11-28 21:52] LABS: FERRITIN 33 NG/ML (8-252); FREE T4 1.01 NG/DL (0.76-1.46); IRON (FE) 37 UG/DL (50-170); MAGNESIUM LEVEL 1.8 MG/DL (1.8-2.4); PERCENT SATURATION 9.3 % (13.2-45.0); TOTAL IRON BINDING CAPACITY 397 UG/DL (250-450)
[2021-11-28 22:02] LABS: FOLATE 7.6 NG/ML (>5.4); VITAMIN B12 LEVEL 565 PG/ML (247-911)
[2021-11-28] MEDS ORDERED: GLUCOSE 4GM CHEW TABLET PO PRN (22:35)
[2021-11-28] MEDS ORDERED: DEXTROSE 50% 50 ML SYRINGE IV PRN (22:35)
[2021-11-28] MEDS ORDERED: GLUCAGON INJ 1MG VIAL SC PRN (22:35)
[2021-11-28 23:23] LABS: CK-MB VALUE MASS 2.4 NG/ML (<3.6); MB/CK RELATIVE INDEX 3.04 (< OR =4)
[2021-11-28] MEDS ORDERED: BISO10TA14 PO (23:30)
[2021-11-28] MEDS ORDERED: OMEP1CAP73 PO (23:30)
[2021-11-28] MEDS ORDERED: ALLO300T2 PO (23:30)
[2021-11-28] MEDS ORDERED: HOME MED LIST COMPLETE! XX SCH (23:35)
[2021-11-29] VITALS (23 sets, daily range): BP systolic 127–151; BP diastolic 61–82; O2SAT 80–100
[2021-11-29] MEDS: IPRATROPIUM 0.5MG/ALBUTEROL 2.5MG INH SOL UD 3ML (DUONEB) NEB SCH ×5 (02:00→20:04)
[2021-11-29] MEDS: ATORVASTATIN 20 MG TAB PO SCH ×2 (04:05→20:24)
[2021-11-29 05:43] LABS: HEMATOCRIT 36.6 % (36.0-47.0); MEAN CORPUSCULAR HEMOGLOBIN 28.4 pg (27.0-33.0); MEAN CORPUSCULAR HGB CONC 30.1 g/dl (32.0-36.5); MEAN CORPUSCULAR VOLUME 94.6 fl (80.0-96.0); PLATELET COUNT, AUTOMATED 192 10^3/uL (150-450); RED BLOOD COUNT 3.87 10^6/uL (4.00-5.40)
[2021-11-29 06:07] LABS: HEMOGLOBIN A1c 7.3 %
[2021-11-29 06:11] LABS: BLOOD UREA NITROGEN 15 MG/DL (7-18); CALCIUM LEVEL 8.4 MG/DL (8.8-10.2); CARBON DIOXIDE LEVEL 35 MEQ/L (21-32); CHLORIDE LEVEL 103 MEQ/L (98-107); CREATININE FOR GFR 0.76 MG/DL (0.55-1.30); GLOMERULAR FILTRATION RATE > 60.0 (>32); GLUCOSE, FASTING 123 MG/DL (70-100); MAGNESIUM LEVEL 1.6 MG/DL (1.8-2.4); POTASSIUM SERUM 3.7 MEQ/L (3.5-5.1); SODIUM LEVEL 141 MEQ/L (136-145)
[2021-11-29] MEDS: TIOTROPIUM INHALER/CAPSULE (SPIRIVA) INH SCH (07:22)
[2021-11-29] MEDS: INSULIN LISPRO (NovoLOG) PER UNIT SC SCH ×4 (07:30→20:25)
[2021-11-29] MEDS ORDERED: IPRATROPIUM 0.5MG/ALBUTEROL 2.5MG INH SOL UD 3ML (DUONEB) NEB PRN (08:35)
[2021-11-29] MEDS ORDERED: FUROSEMIDE 20MG/2ML VIAL (J1940) IV SCH (09:00)
[2021-11-29] MEDS: MAG SULF 1GM/100ML (MAG RUN) 1 GM in IV 1 EA IV SCH ×2 (09:13→10:41)
[2021-11-29] MEDS: CLOPIDOGREL 75 MG TAB PO SCH (09:13)
[2021-11-29] MEDS: DOCUSATE SODIUM 100MG CAPSULE PO SCH ×2 (09:13→20:24)
[2021-11-29] MEDS: bisoproloL fumarate 10 MG TAB PO SCH (09:14)
[2021-11-29] MEDS: allopurinoL 300 MG TAB PO SCH (09:14)
[2021-11-29] MEDS: OMEPRAZOLE 20MG CAP PO SCH (09:14)
[2021-11-29] MEDS: amLODIPine 5 MG TAB PO SCH (09:15)
[2021-11-29] MEDS: FUROSEMIDE 40MG/4ML VIAL (J1940) IV SCH ×2 (09:16→20:24)
[2021-11-29 13:18] LABS: HEMATOCRIT 36.9 % (36.0-47.0); HEMOGLOBIN 11.2 g/dl (12.0-15.5)
[2021-11-29 18:12] LABS: HEMATOCRIT 37.5 % (36.0-47.0); HEMOGLOBIN 11.4 g/dl (12.0-15.5)
[2021-11-30] VITALS (19 sets, daily range): BP systolic 125–141; BP diastolic 55–75; O2SAT 92–99
[2021-11-30 00:39] LABS: HEMATOCRIT 33.7 % (36.0-47.0); HEMOGLOBIN 10.2 g/dl (12.0-15.5)
[2021-11-30] MEDS: IPRATROPIUM 0.5MG/ALBUTEROL 2.5MG INH SOL UD 3ML (DUONEB) NEB SCH ×4 (01:09→19:45)
[2021-11-30 05:07] LABS: BASO % 0.6 % (0.0-1.0); EOS # 0.1 10^3/uL (0.0-0.5); EOS % 1.5 % (0.0-3.0); HEMATOCRIT 33.8 % (36.0-47.0); HEMOGLOBIN 10.2 g/dl (12.0-15.5); LYMPH # 0.7 10^3/uL (1.5-5.0); LYMPH % 14.5 % (24.0-44.0); MEAN CORPUSCULAR HEMOGLOBIN 28.9 pg (27.0-33.0); MEAN CORPUSCULAR HGB CONC 30.2 g/dl (32.0-36.5); MEAN CORPUSCULAR VOLUME 95.8 fl (80.0-96.0); MONO # 0.5 10^3/uL (0.0-0.8); MONO % 10.6 % (2.0-8.0); NEUTROPHILS # 3.5 10^3/uL (1.5-8.5); NEUTROPHILS % 72.2 % (36.0-66.0); PLATELET COUNT, AUTOMATED 171 10^3/uL (150-450); RED BLOOD COUNT 3.53 10^6/uL (4.00-5.40); WHITE BLOOD COUNT 4.8 10^3/uL (4.0-10.0)
[2021-11-30 05:36] LABS: BLOOD UREA NITROGEN 15 MG/DL (7-18); CALCIUM LEVEL 8.5 MG/DL (8.8-10.2); CARBON DIOXIDE LEVEL 37 MEQ/L (21-32); CHLORIDE LEVEL 103 MEQ/L (98-107); CREATININE FOR GFR 0.72 MG/DL (0.55-1.30); GLOMERULAR FILTRATION RATE > 60.0 (>32); GLUCOSE, FASTING 120 MG/DL (70-100); MAGNESIUM LEVEL 1.8 MG/DL (1.8-2.4); POTASSIUM SERUM 3.5 MEQ/L (3.5-5.1); SODIUM LEVEL 143 MEQ/L (136-145)
[2021-11-30] MEDS: INSULIN LISPRO (NovoLOG) PER UNIT SC SCH ×4 (07:30→20:19)
[2021-11-30] MEDS: TIOTROPIUM INHALER/CAPSULE (SPIRIVA) INH SCH (07:50)
[2021-11-30] MEDS: DOCUSATE SODIUM 100MG CAPSULE PO SCH ×2 (09:50→20:18)
[2021-11-30] MEDS: OMEPRAZOLE 20MG CAP PO SCH (09:50)
[2021-11-30] MEDS: CLOPIDOGREL 75 MG TAB PO SCH (09:50)
[2021-11-30] MEDS: allopurinoL 300 MG TAB PO SCH (09:51)
[2021-11-30] MEDS: amLODIPine 5 MG TAB PO SCH (09:51)
[2021-11-30] MEDS: bisoproloL fumarate 10 MG TAB PO SCH (09:52)
[2021-11-30] MEDS: FUROSEMIDE 40MG/4ML VIAL (J1940) IV SCH (09:53)
[2021-11-30 12:42] LABS: HEMATOCRIT 37.5 % (36.0-47.0)
[2021-11-30 18:54] LABS: HEMATOCRIT 34.8 % (36.0-47.0); HEMOGLOBIN 10.2 g/dl (12.0-15.5)
[2021-11-30] MEDS: ATORVASTATIN 20 MG TAB PO SCH (20:18)
[2021-12-01] MEDS: IPRATROPIUM 0.5MG/ALBUTEROL 2.5MG INH SOL UD 3ML (DUONEB) NEB SCH ×2 (00:06→07:18)
[2021-12-01 05:04] VITALS: BP 141/59
[2021-12-01 06:56] LABS: HEMATOCRIT 34.7 % (36.0-47.0); HEMOGLOBIN 10.3 g/dl (12.0-15.5)
[2021-12-01 07:02] LABS: BASO % 0.3 % (0.0-1.0); EOS # 0.1 10^3/uL (0.0-0.5); EOS % 0.9 % (0.0-3.0); HEMATOCRIT 34.7 % (36.0-47.0); HEMOGLOBIN 10.4 g/dl (12.0-15.5); LYMPH # 0.6 10^3/uL (1.5-5.0); LYMPH % 9.5 % (24.0-44.0); MEAN CORPUSCULAR HEMOGLOBIN 28.6 pg (27.0-33.0); MEAN CORPUSCULAR VOLUME 95.3 fl (80.0-96.0); MONO # 0.6 10^3/uL (0.0-0.8); NEUTROPHILS # 4.6 10^3/uL (1.5-8.5); PLATELET COUNT, AUTOMATED 172 10^3/uL (150-450); RED BLOOD COUNT 3.64 10^6/uL (4.00-5.40); WHITE BLOOD COUNT 5.9 10^3/uL (4.0-10.0)
[2021-12-01] MEDS: TIOTROPIUM INHALER/CAPSULE (SPIRIVA) INH SCH (07:18)
[2021-12-01] MEDS: INSULIN LISPRO (NovoLOG) PER UNIT SC SCH ×2 (07:30→12:33)
[2021-12-01 07:39] LABS: BLOOD UREA NITROGEN 18 MG/DL (7-18); CALCIUM LEVEL 8.9 MG/DL (8.8-10.2); CARBON DIOXIDE LEVEL 37 MEQ/L (21-32); CHLORIDE LEVEL 102 MEQ/L (98-107); CREATININE FOR GFR 0.75 MG/DL (0.55-1.30); GLOMERULAR FILTRATION RATE > 60.0 (>32); GLUCOSE, FASTING 100 MG/DL (70-100); MAGNESIUM LEVEL 1.9 MG/DL (1.8-2.4); POTASSIUM SERUM 3.6 MEQ/L (3.5-5.1); SODIUM LEVEL 144 MEQ/L (136-145)
[2021-12-01 09:03] LABS: NT-PRO BNP 3629 PG/ML (<450)
[2021-12-01 09:10] VITALS: O2SAT 91
[2021-12-01] MEDS: FUROSEMIDE 40MG/4ML VIAL (J1940) IV SCH (09:20)
[2021-12-01 09:21] VITALS: BP 141/59
[2021-12-01] MEDS: allopurinoL 300 MG TAB PO SCH (09:21)
[2021-12-01] MEDS: bisoproloL fumarate 10 MG TAB PO SCH (09:21)
[2021-12-01] MEDS: DOCUSATE SODIUM 100MG CAPSULE PO SCH (09:22)
[2021-12-01] MEDS: OMEPRAZOLE 20MG CAP PO SCH (09:22)
[2021-12-01] MEDS: CLOPIDOGREL 75 MG TAB PO SCH (09:23)
[2021-12-01] MEDS: amLODIPine 5 MG TAB PO SCH (09:23)
[2021-12-01] MEDS ORDERED: TORS20TA2 PO (11:29)
[2021-12-01] MEDS ORDERED: FERR325T3 PO (14:01)
== END 2021-12-01 13:28 | disposition left against medical advice (07) | DRG 291 ==
LOC: M ED 18:12 → M ED INP 21:24 → ENRESERV 22:37 → M PCU 11-29 02:10 → M MSPAV 11-30 13:09
PROVIDERS: ADMIT Family Medicine; ATTEND Family Medicine
PROC: B246ZZZ Ultrasonography of Right and Left Heart (ICD-10-PCS; principal; 2021-11-29)
DX: I11.0 Hypertensive heart disease with heart failure (principal); I50.43 Acute on chronic combined systolic (congestive) and diastolic (congestive) heart failure; J90 Pleural effusion, not elsewhere classified; I38 Endocarditis, valve unspecified; K62.5 Hemorrhage of anus and rectum; R18.8 Other ascites; D50.9 Iron deficiency anemia, unspecified; E11.42 Type 2 diabetes mellitus with diabetic polyneuropathy; I25.10 Atherosclerotic heart disease of native coronary artery without angina pectoris; J44.9 Chronic obstructive pulmonary disease, unspecified; Z95.810 Presence of automatic (implantable) cardiac defibrillator; Z95.5 Presence of coronary angioplasty implant and graft; F17.210 Nicotine dependence, cigarettes, uncomplicated; Z79.82 Long term (current) use of aspirin; Z79.84 Long term (current) use of oral hypoglycemic drugs; Z79.899 Other long term (current) drug therapy; Z88.8 Allergy status to other drugs, medicaments and biological substances; K21.9 Gastro-esophageal reflux disease without esophagitis; Z98.41 Cataract extraction status, right eye; Z98.42 Cataract extraction status, left eye; Z95.1 Presence of aortocoronary bypass graft; Z20.822 Contact with and (suspected) exposure to COVID-19; M10.9 Gout, unspecified; H40.9 Unspecified glaucoma; Z66 Do not resuscitate; Z91.19 Patient's noncompliance with other medical treatment and regimen; E78.5 Hyperlipidemia, unspecified; I27.20 Pulmonary hypertension, unspecified

== ENCOUNTER 2021-12-02 01:30 | Inpatient (IN) | payer MEDICARE, MEDICAID ==
[~2021-12-02] VITALS: Ht 157.5 cm; Wt 58.3 kg
[~2021-12-02 01:30] MED LIST changes: +ALLO300T2 PO; +BISO10TA14 PO; +FERR325T3 PO; +OMEP1CAP73 PO; +TORS20TA2 PO
[2021-12-02 03:17] LABS: BASO % 0.5 % (0.0-1.0); EOS # 0.1 10^3/uL (0.0-0.5); EOS % 0.8 % (0.0-3.0); HEMATOCRIT 36.4 % (36.0-47.0); HEMOGLOBIN 11.2 g/dl (12.0-15.5); LYMPH # 0.6 10^3/uL (1.5-5.0); LYMPH % 9.7 % (24.0-44.0); MEAN CORPUSCULAR HEMOGLOBIN 29.3 pg (27.0-33.0); MEAN CORPUSCULAR HGB CONC 30.8 g/dl (32.0-36.5); MEAN CORPUSCULAR VOLUME 95.3 fl (80.0-96.0); MONO # 0.5 10^3/uL (0.0-0.8); MONO % 8.3 % (2.0-8.0); NEUTROPHILS # 4.7 10^3/uL (1.5-8.5); NEUTROPHILS % 80.2 % (36.0-66.0); PLATELET COUNT, AUTOMATED 177 10^3/uL (150-450); RED BLOOD COUNT 3.82 10^6/uL (4.00-5.40); WHITE BLOOD COUNT 5.9 10^3/uL (4.0-10.0)
[2021-12-02 03:45] LABS: BLOOD UREA NITROGEN 19 MG/DL (7-18); CALCIUM LEVEL 8.5 MG/DL (8.8-10.2); CARBON DIOXIDE LEVEL 37 MEQ/L (21-32); CHLORIDE LEVEL 101 MEQ/L (98-107); CREATININE FOR GFR 0.79 MG/DL (0.55-1.30); GLOMERULAR FILTRATION RATE > 60.0 (>32); GLUCOSE, FASTING 141 MG/DL (70-100); MAGNESIUM LEVEL 1.6 MG/DL (1.8-2.4); NT-PRO BNP 5831 PG/ML (<450); POTASSIUM SERUM 3.8 MEQ/L (3.5-5.1); SODIUM LEVEL 142 MEQ/L (136-145)
[2021-12-02] MEDS ORDERED: COMBIVENT RESPIMAT 100-20MCG INHALER 4GM INH ONE (03:50)
[2021-12-02] MEDS ORDERED: FUROSEMIDE 100MG/10ML VIAL (J1940) IV ONE (04:10)
[2021-12-02] MEDS ORDERED: HOME MED LIST COMPLETE! XX SCH (04:25)
[2021-12-02] MEDS ORDERED: GLUCAGON INJ 1MG VIAL SC PRN (04:30)
[2021-12-02] MEDS ORDERED: ACETAMINOPHEN TAB 650MG DOSE (2X325MG) PO PRN (04:30)
[2021-12-02] MEDS ORDERED: DEXTROSE 50% 50 ML SYRINGE IV PRN (04:30)
[2021-12-02] MEDS ORDERED: GLUCOSE 4GM CHEW TABLET PO PRN (04:30)
[2021-12-02] MEDS ORDERED: BENZONATATE 100MG CAPSULE PO PRN (04:30)
[2021-12-02 04:38] LABS: RSV AMPLIFICATION NEGATIVE (NEGATIVE)
[2021-12-02 06:00] VITALS: BP 143/76
[2021-12-02 06:29] LABS: URIC ACID 4.2 MG/DL (2.6-6.0)
[2021-12-02 06:42] VITALS: BP 143/76
[2021-12-02] MEDS: DOCUSATE SODIUM 100MG CAPSULE PO SCH ×2 (08:24→20:53)
[2021-12-02] MEDS: ASPIRIN 81MG ENTERIC TABLET PO SCH (08:24)
[2021-12-02] MEDS: INSULIN LISPRO (NovoLOG) PER UNIT SC SCH ×4 (08:24→20:54)
[2021-12-02] MEDS: allopurinoL 300 MG TAB PO SCH (08:25)
[2021-12-02] MEDS: POTASSIUM CHLORIDE 10MEQ SR TABLET PO SCH ×2 (08:25→20:53)
[2021-12-02] MEDS: OMEPRAZOLE 20MG CAP PO SCH (08:25)
[2021-12-02] MEDS: amLODIPine 5 MG TAB PO SCH (08:25)
[2021-12-02] MEDS: CLOPIDOGREL 75 MG TAB PO SCH (08:25)
[2021-12-02] MEDS: TIOTROPIUM INHALER/CAPSULE (SPIRIVA) INH SCH (09:33)
[2021-12-02] MEDS: FUROSEMIDE 40MG/4ML VIAL (J1940) IV SCH (10:48)
[2021-12-02] MEDS: bisoproloL fumarate 10 MG TAB PO SCH (10:48)
[2021-12-02 14:00] VITALS: BP 127/53
[2021-12-02] MEDS: ATORVASTATIN 20 MG TAB PO SCH (20:53)
[2021-12-02 22:00] VITALS: BP 128/54
[2021-12-03] MEDS: IPRATROPIUM 0.5MG/ALBUTEROL 2.5MG INH SOL UD 3ML (DUONEB) NEB PRN ×2 (00:34→11:14)
[2021-12-03 05:50] VITALS: BP 127/56
[2021-12-03 06:18] LABS: BASO % 0.6 % (0.0-1.0); EOS # 0.1 10^3/uL (0.0-0.5); EOS % 1.2 % (0.0-3.0); HEMATOCRIT 33.4 % (36.0-47.0); HEMOGLOBIN 10.1 g/dl (12.0-15.5); LYMPH # 0.7 10^3/uL (1.5-5.0); LYMPH % 13.8 % (24.0-44.0); MEAN CORPUSCULAR HEMOGLOBIN 29.2 pg (27.0-33.0); MEAN CORPUSCULAR HGB CONC 30.2 g/dl (32.0-36.5); MEAN CORPUSCULAR VOLUME 96.5 fl (80.0-96.0); MONO # 0.5 10^3/uL (0.0-0.8); MONO % 9.7 % (2.0-8.0); NEUTROPHILS # 3.8 10^3/uL (1.5-8.5); NEUTROPHILS % 74.3 % (36.0-66.0); PLATELET COUNT, AUTOMATED 158 10^3/uL (150-450); RED BLOOD COUNT 3.46 10^6/uL (4.00-5.40); WHITE BLOOD COUNT 5.1 10^3/uL (4.0-10.0)
[2021-12-03 06:46] LABS: BLOOD UREA NITROGEN 21 MG/DL (7-18); CALCIUM LEVEL 8.7 MG/DL (8.8-10.2); CARBON DIOXIDE LEVEL 39 MEQ/L (21-32); CHLORIDE LEVEL 104 MEQ/L (98-107); GLOMERULAR FILTRATION RATE > 60.0 (>32); GLUCOSE, FASTING 125 MG/DL (70-100); MAGNESIUM LEVEL 1.9 MG/DL (1.8-2.4); POTASSIUM SERUM 3.9 MEQ/L (3.5-5.1); SODIUM LEVEL 145 MEQ/L (136-145)
[2021-12-03] MEDS ORDERED: FLUBLOK(EGG FREE)(QUAD)INFLUENZA VACC 0.5ML SYRINGE 18YRS & OLDER IM.IMMUN ONE (09:00)
[2021-12-03] MEDS ORDERED: PREVNAR 13 VACCINE SYRINGE IM.IMMUN ONE (09:00)
[2021-12-03] MEDS: FUROSEMIDE 40MG/4ML VIAL (J1940) IV SCH ×2 (09:08→20:22)
[2021-12-03] MEDS: INSULIN LISPRO (NovoLOG) PER UNIT SC SCH ×4 (09:08→20:37)
[2021-12-03] MEDS: ASPIRIN 81MG ENTERIC TABLET PO SCH (09:10)
[2021-12-03] MEDS: OMEPRAZOLE 20MG CAP PO SCH (09:10)
[2021-12-03] MEDS: DOCUSATE SODIUM 100MG CAPSULE PO SCH ×2 (09:10→20:22)
[2021-12-03] MEDS: CLOPIDOGREL 75 MG TAB PO SCH (09:10)
[2021-12-03] MEDS: allopurinoL 300 MG TAB PO SCH (09:13)
[2021-12-03] MEDS: POTASSIUM CHLORIDE 10MEQ SR TABLET PO SCH ×2 (09:14→20:22)
[2021-12-03] MEDS: amLODIPine 5 MG TAB PO SCH (09:21)
[2021-12-03] MEDS: bisoproloL fumarate 10 MG TAB PO SCH (09:21)
[2021-12-03] MEDS: TIOTROPIUM INHALER/CAPSULE (SPIRIVA) INH SCH (11:08)
[2021-12-03 14:00] VITALS: BP 132/53
[2021-12-03] MEDS: ATORVASTATIN 20 MG TAB PO SCH (20:22)
[2021-12-03 21:00] VITALS: BP 129/57
[2021-12-04 06:00] VITALS: BP 132/58
[2021-12-04 07:08] LABS: BLOOD UREA NITROGEN 20 MG/DL (7-18); CALCIUM LEVEL 8.3 MG/DL (8.8-10.2); CARBON DIOXIDE LEVEL 38 MEQ/L (21-32); CHLORIDE LEVEL 100 MEQ/L (98-107); CREATININE FOR GFR 0.73 MG/DL (0.55-1.30); GLOMERULAR FILTRATION RATE > 60.0 (>32); GLUCOSE, FASTING 119 MG/DL (70-100); MAGNESIUM LEVEL 1.7 MG/DL (1.8-2.4); SODIUM LEVEL 140 MEQ/L (136-145)
[2021-12-04 07:13] LABS: BASO # 0.1 10^3/uL (0.0-0.2); BASO % 0.9 % (0.0-1.0); EOS # 0.1 10^3/uL (0.0-0.5); EOS % 0.9 % (0.0-3.0); HEMATOCRIT 35.1 % (36.0-47.0); HEMOGLOBIN 10.5 g/dl (12.0-15.5); LYMPH # 0.5 10^3/uL (1.5-5.0); LYMPH % 9.5 % (24.0-44.0); MEAN CORPUSCULAR HEMOGLOBIN 28.8 pg (27.0-33.0); MEAN CORPUSCULAR HGB CONC 29.9 g/dl (32.0-36.5); MEAN CORPUSCULAR VOLUME 96.4 fl (80.0-96.0); MONO # 0.5 10^3/uL (0.0-0.8); MONO % 9.3 % (2.0-8.0); NEUTROPHILS # 4.2 10^3/uL (1.5-8.5); PLATELET COUNT, AUTOMATED 160 10^3/uL (150-450); RED BLOOD COUNT 3.64 10^6/uL (4.00-5.40); WHITE BLOOD COUNT 5.4 10^3/uL (4.0-10.0)
[2021-12-04] MEDS: INSULIN LISPRO (NovoLOG) PER UNIT SC SCH ×4 (07:37→20:16)
[2021-12-04] MEDS: TIOTROPIUM INHALER/CAPSULE (SPIRIVA) INH SCH (08:00)
[2021-12-04] MEDS: ASPIRIN 81MG ENTERIC TABLET PO SCH (08:08)
[2021-12-04] MEDS: CLOPIDOGREL 75 MG TAB PO SCH (08:09)
[2021-12-04] MEDS: allopurinoL 300 MG TAB PO SCH (08:09)
[2021-12-04] MEDS: DOCUSATE SODIUM 100MG CAPSULE PO SCH ×2 (08:09→19:51)
[2021-12-04] MEDS: OMEPRAZOLE 20MG CAP PO SCH (08:09)
[2021-12-04] MEDS: POTASSIUM CHLORIDE 10MEQ SR TABLET PO SCH ×2 (08:09→19:52)
[2021-12-04] MEDS: amLODIPine 5 MG TAB PO SCH (08:09)
[2021-12-04] MEDS: bisoproloL fumarate 10 MG TAB PO SCH (08:10)
[2021-12-04] MEDS: FUROSEMIDE 40MG/4ML VIAL (J1940) IV SCH ×2 (08:10→19:52)
[2021-12-04 14:00] VITALS: BP 127/75
[2021-12-04] MEDS: ATORVASTATIN 20 MG TAB PO SCH (19:51)
[2021-12-04 22:00] VITALS: BP 144/69
[2021-12-05 06:00] VITALS: BP 130/59
[2021-12-05 06:17] LABS: BASO % 0.6 % (0.0-1.0); EOS # 0.1 10^3/uL (0.0-0.5); EOS % 1.2 % (0.0-3.0); HEMATOCRIT 35.6 % (36.0-47.0); HEMOGLOBIN 10.6 g/dl (12.0-15.5); LYMPH # 0.6 10^3/uL (1.5-5.0); MEAN CORPUSCULAR HEMOGLOBIN 28.8 pg (27.0-33.0); MEAN CORPUSCULAR HGB CONC 29.8 g/dl (32.0-36.5); MEAN CORPUSCULAR VOLUME 96.7 fl (80.0-96.0); MONO # 0.5 10^3/uL (0.0-0.8); NEUTROPHILS # 3.6 10^3/uL (1.5-8.5); NEUTROPHILS % 73.6 % (36.0-66.0); PLATELET COUNT, AUTOMATED 167 10^3/uL (150-450); RED BLOOD COUNT 3.68 10^6/uL (4.00-5.40); WHITE BLOOD COUNT 4.8 10^3/uL (4.0-10.0)
[2021-12-05 06:25] LABS: INR 1.09; PARTIAL THROMBOPLASTIN TIME 31.2 SECONDS (25.9-37.0); PROTHROMBIN TIME 14.5 SECONDS (12.7-14.5)
[2021-12-05 06:49] LABS: BLOOD UREA NITROGEN 19 MG/DL (7-18); CALCIUM LEVEL 8.6 MG/DL (8.8-10.2); CARBON DIOXIDE LEVEL 39 MEQ/L (21-32); CHLORIDE LEVEL 100 MEQ/L (98-107); CREATININE FOR GFR 0.74 MG/DL (0.55-1.30); GLOMERULAR FILTRATION RATE > 60.0 (>32); GLUCOSE, FASTING 97 MG/DL (70-100); NT-PRO BNP 6528 PG/ML (<450); POTASSIUM SERUM 3.8 MEQ/L (3.5-5.1); SODIUM LEVEL 141 MEQ/L (136-145)
[2021-12-05] MEDS: INSULIN LISPRO (NovoLOG) PER UNIT SC SCH ×2 (07:30→13:39)
[2021-12-05] MEDS: TIOTROPIUM INHALER/CAPSULE (SPIRIVA) INH SCH (07:30)
[2021-12-05 09:39] VITALS: BP 144/60
[2021-12-05] MEDS: OMEPRAZOLE 20MG CAP PO SCH (09:39)
[2021-12-05] MEDS: bisoproloL fumarate 10 MG TAB PO SCH (09:39)
[2021-12-05] MEDS: allopurinoL 300 MG TAB PO SCH (09:40)
[2021-12-05] MEDS: DOCUSATE SODIUM 100MG CAPSULE PO SCH (09:40)
[2021-12-05] MEDS: amLODIPine 5 MG TAB PO SCH (09:40)
[2021-12-05] MEDS: ASPIRIN 81MG ENTERIC TABLET PO SCH (09:40)
[2021-12-05] MEDS: FUROSEMIDE 40MG/4ML VIAL (J1940) IV SCH (09:40)
[2021-12-05] MEDS: CLOPIDOGREL 75 MG TAB PO SCH (09:40)
[2021-12-05] MEDS: POTASSIUM CHLORIDE 10MEQ SR TABLET PO SCH (09:41)
[2021-12-05] MEDS ORDERED: ASPI-551 PO (12:03)
[2021-12-05] MEDS ORDERED: TORS20TA2 PO (12:03)
== END 2021-12-05 14:05 | disposition home health service (06) | DRG 291 ==
LOC: M ED 01:30 → M ED INP 04:27 → ENRESERV 05:07 → M MSPAV 06:29
PROVIDERS: ADMIT Family Medicine; ATTEND Family Medicine
DX: I11.0 Hypertensive heart disease with heart failure (principal); I50.23 Acute on chronic systolic (congestive) heart failure; K62.5 Hemorrhage of anus and rectum; J44.9 Chronic obstructive pulmonary disease, unspecified; K21.9 Gastro-esophageal reflux disease without esophagitis; M10.9 Gout, unspecified; I25.10 Atherosclerotic heart disease of native coronary artery without angina pectoris; E11.40 Type 2 diabetes mellitus with diabetic neuropathy, unspecified; D50.9 Iron deficiency anemia, unspecified; K57.90 Diverticulosis of intestine, part unspecified, without perforation or abscess without bleeding; F17.200 Nicotine dependence, unspecified, uncomplicated; H40.9 Unspecified glaucoma; I35.0 Nonrheumatic aortic (valve) stenosis; E78.5 Hyperlipidemia, unspecified; Z66 Do not resuscitate; Z95.5 Presence of coronary angioplasty implant and graft; Z95.810 Presence of automatic (implantable) cardiac defibrillator; Z87.19 Personal history of other diseases of the digestive system; Z98.41 Cataract extraction status, right eye; Z98.42 Cataract extraction status, left eye; Z79.02 Long term (current) use of antithrombotics/antiplatelets; Z79.899 Other long term (current) drug therapy; Z88.8 Allergy status to other drugs, medicaments and biological substances

== ENCOUNTER → 2021-12-12 | Outpatient (REF) | payer MEDICARE, MEDICAID ==
[~2021-12-12] MED LIST changes: +ASPI-551 PO
[2021-12-12 15:04] LABS: BASO # 0.1 10^3/uL (0.0-0.2); BASO % 0.8 % (0.0-1.0); EOS # 0.1 10^3/uL (0.0-0.5); EOS % 0.6 % (0.0-3.0); HEMATOCRIT 34.9 % (36.0-47.0); HEMOGLOBIN 10.5 g/dl (12.0-15.5); LYMPH % 12.3 % (24.0-44.0); MEAN CORPUSCULAR HEMOGLOBIN 28.2 pg (27.0-33.0); MEAN CORPUSCULAR HGB CONC 30.1 g/dl (32.0-36.5); MEAN CORPUSCULAR VOLUME 93.8 fl (80.0-96.0); MONO # 0.6 10^3/uL (0.0-0.8); MONO % 7.6 % (2.0-8.0); NEUTROPHILS # 6.1 10^3/uL (1.5-8.5); NEUTROPHILS % 78.2 % (36.0-66.0); PLATELET COUNT, AUTOMATED 225 10^3/uL (150-450); RED BLOOD COUNT 3.72 10^6/uL (4.00-5.40); WHITE BLOOD COUNT 7.8 10^3/uL (4.0-10.0)
[2021-12-12 15:28] LABS: ALBUMIN 2.7 GM/DL (3.2-5.2); BILIRUBIN,TOTAL 0.6 MG/DL (0.2-1.0); CALCIUM LEVEL 8.9 MG/DL (8.8-10.2); CHOLESTEROL RISK RATIO 2.66 (<5); CREATININE FOR GFR 1.09 MG/DL (0.55-1.30); GLOMERULAR FILTRATION RATE 50.7 (>32); MAGNESIUM LEVEL 1.6 MG/DL (1.8-2.4); PERCENT SATURATION 7.2 % (13.2-45.0); POTASSIUM SERUM 4.1 MEQ/L (3.5-5.1); TOTAL PROTEIN 5.8 GM/DL (6.4-8.2); URIC ACID 4.3 MG/DL (2.6-6.0)
[2021-12-12 15:35] LABS: CREATININE, URINE 31.2 MG/DL; MAU/CREAT RATIO 189.1 MCG/MG (0.0-30.0); TOTAL 25(OH) VITAMIN D 8.6 NG/ML (30.0-100.0)
[2021-12-12 15:37] LABS: FOLATE 7.5 NG/ML
[2021-12-12 15:38] LABS: HEMOGLOBIN A1c 7.3 %
== END ==
LOC: M SHH 14:39
PROVIDERS: ATTEND Nurse Practitioner Family
DX: I50.32 Chronic diastolic (congestive) heart failure (principal); I11.0 Hypertensive heart disease with heart failure; R18.8 Other ascites; M10.9 Gout, unspecified; D64.9 Anemia, unspecified; E11.9 Type 2 diabetes mellitus without complications; E55.9 Vitamin D deficiency, unspecified; R06.02 Shortness of breath; Z79.899 Other long term (current) drug therapy

== ENCOUNTER 2022-01-10 16:29 | Emergency (ER) | payer MEDICARE, MEDICAID ==
[~2022-01-10] VITALS: Ht 157.5 cm; Wt 53.2 kg
[2022-01-10 18:27] LABS: BASO % 0.6 % (0.0-1.0); HEMATOCRIT 36.6 % (36.0-47.0); HEMOGLOBIN 11.2 g/dl (12.0-15.5); LYMPH # 0.3 10^3/uL (1.5-5.0); LYMPH % 5.6 % (24.0-44.0); MEAN CORPUSCULAR HEMOGLOBIN 28.7 pg (27.0-33.0); MEAN CORPUSCULAR HGB CONC 30.6 g/dl (32.0-36.5); MEAN CORPUSCULAR VOLUME 93.8 fl (80.0-96.0); MONO # 0.3 10^3/uL (0.0-0.8); NEUTROPHILS # 4.4 10^3/uL (1.5-8.5); PLATELET COUNT, AUTOMATED 199 10^3/uL (150-450)
[2022-01-10 18:51] LABS: ERYTHROCYTE SEDIMENTATION RATE 19 mm/hr (0-30)
[2022-01-10 18:53] LABS: INR 1.09; PROTHROMBIN TIME 14.5 SECONDS (12.7-14.5)
[2022-01-10 18:58] LABS: BILIRUBIN,DIRECT 0.3 MG/DL (0.0-0.2); BILIRUBIN,TOTAL 0.6 MG/DL (0.2-1.0); C REACTIVE PROTEIN QUANTITATIV 2.09 MG/DL (0.00-0.30); CALCIUM LEVEL 9.3 MG/DL (8.8-10.2); CREATININE FOR GFR 1.35 MG/DL (0.55-1.30); GLOMERULAR FILTRATION RATE 39.6 (>32); POTASSIUM SERUM 4.7 MEQ/L (3.5-5.1); THYROID STIMULATING HORMONE 2.66 uIU/ML (0.358-3.740); TOTAL PROTEIN 6.4 GM/DL (6.4-8.2)
[2022-01-10 19:13] LABS: RSV AMPLIFICATION NEGATIVE (NEGATIVE)
[2022-01-10 21:16] VITALS: BP 148/78
== END 2022-01-10 21:18 | disposition home or self-care (01) ==
LOC: M ED 16:29
DX: N17.9 Acute kidney failure, unspecified (principal); R22.43 Localized swelling, mass and lump, lower limb, bilateral; R06.00 Dyspnea, unspecified; E11.9 Type 2 diabetes mellitus without complications; I10 Essential (primary) hypertension; I50.9 Heart failure, unspecified; J44.9 Chronic obstructive pulmonary disease, unspecified; E78.5 Hyperlipidemia, unspecified; I25.10 Atherosclerotic heart disease of native coronary artery without angina pectoris; K21.9 Gastro-esophageal reflux disease without esophagitis; Z86.73 Personal history of transient ischemic attack (TIA), and cerebral infarction without residual deficits; Z87.09 Personal history of other diseases of the respiratory system; Z88.8 Allergy status to other drugs, medicaments and biological substances; Z95.0 Presence of cardiac pacemaker; Z95.1 Presence of aortocoronary bypass graft; Z95.5 Presence of coronary angioplasty implant and graft; Z79.899 Other long term (current) drug therapy; Z79.82 Long term (current) use of aspirin; Z79.84 Long term (current) use of oral hypoglycemic drugs; Z79.4 Long term (current) use of insulin; Z79.01 Long term (current) use of anticoagulants; F17.200 Nicotine dependence, unspecified, uncomplicated

== ENCOUNTER 2022-01-24 19:15 | Observation (INO) | payer MEDICARE, MEDICAID ==
[~2022-01-24] VITALS: Ht 157.5 cm; Wt 49.4 kg
[2022-01-24 19:57] LABS: BASO # 0.1 10^3/uL (0.0-0.2); BASO % 0.5 % (0.0-1.0); HEMATOCRIT 35.5 % (36.0-47.0); HEMOGLOBIN 10.7 g/dl (12.0-15.5); LYMPH # 1.6 10^3/uL (1.5-5.0); LYMPH % 15.8 % (24.0-44.0); MEAN CORPUSCULAR HEMOGLOBIN 28.7 pg (27.0-33.0); MEAN CORPUSCULAR HGB CONC 30.1 g/dl (32.0-36.5); MEAN CORPUSCULAR VOLUME 95.2 fl (80.0-96.0); MONO # 0.9 10^3/uL (0.0-0.8); MONO % 8.7 % (2.0-8.0); NEUTROPHILS # 7.5 10^3/uL (1.5-8.5); NEUTROPHILS % 74.3 % (36.0-66.0); PLATELET COUNT, AUTOMATED 250 10^3/uL (150-450); RED BLOOD COUNT 3.73 10^6/uL (4.00-5.40); WHITE BLOOD COUNT 10.1 10^3/uL (4.0-10.0)
[2022-01-24 20:15] LABS: INR 1.06; PROTHROMBIN TIME 14.2 SECONDS (12.7-14.5)
[2022-01-24 20:16] LABS: PARTIAL THROMBOPLASTIN TIME 28.9 SECONDS (25.9-37.0)
[2022-01-24 20:50] LABS: BLOOD UREA NITROGEN 13 MG/DL (7-18); GLUCOSE, FASTING 70 MG/DL (70-100)
[2022-01-24 20:51] LABS: RSV AMPLIFICATION NEGATIVE (NEGATIVE)
[2022-01-24 20:51] LABS: CALCIUM LEVEL 8.8 MG/DL (8.8-10.2); CARBON DIOXIDE LEVEL 33 MEQ/L (21-32); CHLORIDE LEVEL 103 MEQ/L (98-107); CREATININE FOR GFR 0.69 MG/DL (0.55-1.30); FREE T4 0.94 NG/DL (0.76-1.46); GLOMERULAR FILTRATION RATE > 60.0 (>32); NT-PRO BNP 12918 PG/ML (<450); POTASSIUM SERUM 4.1 MEQ/L (3.5-5.1); SODIUM LEVEL 140 MEQ/L (136-145)
[2022-01-24 20:53] LABS: CK-MB VALUE MASS 5.3 NG/ML (<3.6); MB/CK RELATIVE INDEX 12.93 (< OR =4)
[2022-01-24 21:15] LABS: CK-MB VALUE MASS 12.4 NG/ML (<3.6); MB/CK RELATIVE INDEX 15.31 (< OR =4)
[2022-01-24 23:36] LABS: CK-MB VALUE MASS 26.5 NG/ML (<3.6); MB/CK RELATIVE INDEX 9.08 (< OR =4)
[2022-01-25] MEDS ORDERED: AMIODARONE HCL 150 MG in IV 1 EA IV SCH ×2 (01:05→01:40)
[2022-01-25] MEDS ORDERED: DEXTROSE 50% 50 ML SYRINGE IV PRN (03:20)
[2022-01-25] MEDS ORDERED: HEPARIN SOD (PORCINE) 5000UNITS/ML 1ML VIAL/SYRINGE SC SCH (03:20)
[2022-01-25] MEDS ORDERED: GLUCOSE 4GM CHEW TABLET PO PRN (03:20)
[2022-01-25] MEDS ORDERED: GLUCAGON INJ 1MG VIAL SC PRN (03:20)
[2022-01-25] MEDS ORDERED: IPRATROPIUM 0.5MG/ALBUTEROL 2.5MG INH SOL UD 3ML (DUONEB) NEB PRN (03:20)
[2022-01-25] MEDS ORDERED: ACETAMINOPHEN TAB 650MG DOSE (2X325MG) PO PRN (03:20)
[2022-01-25 05:40] VITALS: BP 114/67
[2022-01-25] MEDS ORDERED: FERR324T21 PO (06:24)
[2022-01-25] MEDS ORDERED: SPIR1CAP INH (06:24)
[2022-01-25] MEDS ORDERED: LISI2.5T9 PO (06:24)
[2022-01-25] MEDS ORDERED: TORS10TA3 PO (06:24)
[2022-01-25] MEDS ORDERED: D3400CAP PO (06:24)
[2022-01-25] MEDS ORDERED: GLIM2TAB4 PO (06:24)
[2022-01-25] MEDS ORDERED: ALLO100T PO (06:24)
[2022-01-25] MEDS ORDERED: HOME MED LIST COMPLETE! XX SCH (06:25)
[2022-01-25] MEDS: INSULIN LISPRO (NovoLOG) PER UNIT SC SCH ×3 (07:30→17:00)
[2022-01-25] MEDS: IPRATROPIUM 0.5MG/ALBUTEROL 2.5MG INH SOL UD 3ML (DUONEB) NEB SCH ×4 (08:04→23:19)
[2022-01-25 08:13] VITALS: BP 117/58
[2022-01-25 08:19] LABS: BLOOD UREA NITROGEN 12 MG/DL (7-18); CALCIUM LEVEL 8.7 MG/DL (8.8-10.2); CARBON DIOXIDE LEVEL 33 MEQ/L (21-32); CHLORIDE LEVEL 102 MEQ/L (98-107); CREATININE FOR GFR 0.67 MG/DL (0.55-1.30); GLOMERULAR FILTRATION RATE > 60.0 (>32); GLUCOSE, FASTING 95 MG/DL (70-100); MAGNESIUM LEVEL 1.9 MG/DL (1.8-2.4); SODIUM LEVEL 136 MEQ/L (136-145)
[2022-01-25 08:27] LABS: ALBUMIN 2.2 GM/DL (3.2-5.2); ALT/SGPT 34 U/L (12-78); BILIRUBIN,DIRECT < 0.1 MG/DL (0.0-0.2); BILIRUBIN,TOTAL 0.5 MG/DL (0.2-1.0); TOTAL PROTEIN 5.8 GM/DL (6.4-8.2)
[2022-01-25] MEDS: AMIODARONE 200 MG TAB (PACERONE) PO SCH ×4 (08:42→20:41)
[2022-01-25] MEDS ORDERED: UNRESOLVED CLARIFICATION ENTRY XX ONE (09:00)
[2022-01-25] MEDS ORDERED: APIXABAN 2.5 MG TAB (ELIQUIS) PO SCH (09:00)
[2022-01-25] MEDS ORDERED: APIXABAN 5 MG TAB (ELIQUIS) PO SCH (09:00)
[2022-01-25 10:52] LABS: BLOOD UREA NITROGEN 12 MG/DL (7-18); CALCIUM LEVEL 8.8 MG/DL (8.8-10.2); CARBON DIOXIDE LEVEL 34 MEQ/L (21-32); CHLORIDE LEVEL 104 MEQ/L (98-107); CREATININE FOR GFR 0.67 MG/DL (0.55-1.30); GLOMERULAR FILTRATION RATE > 60.0 (>32); GLUCOSE, FASTING 165 MG/DL (70-100); POTASSIUM SERUM 3.9 MEQ/L (3.5-5.1); SODIUM LEVEL 141 MEQ/L (136-145)
[2022-01-25 12:17] VITALS: BP 111/63
[2022-01-25] MEDS: TIOTROPIUM INHALER/CAPSULE (SPIRIVA) INH SCH (16:00)
[2022-01-25 16:08] VITALS: BP 102/55
[2022-01-25 20:00] VITALS: BP 130/80
[2022-01-25] MEDS ORDERED: INSULIN LISPRO (NovoLOG) PER UNIT SC SCH (21:00)
[2022-01-26] VITALS: BP 115/74
[2022-01-26] MEDS ORDERED: UNRESOLVED CLARIFICATION ENTRY XX SCH (00:01)
[2022-01-26 04:00] VITALS: BP 126/72
[2022-01-26] MEDS: INSULIN LISPRO (NovoLOG) PER UNIT SC SCH (07:30)
[2022-01-26 07:59] VITALS: BP_SYST 124; BP_SYST 132; BP_DIAS 65; BP_DIAS 71
[2022-01-26] MEDS: TIOTROPIUM INHALER/CAPSULE (SPIRIVA) INH SCH (08:17)
[2022-01-26] MEDS: IPRATROPIUM 0.5MG/ALBUTEROL 2.5MG INH SOL UD 3ML (DUONEB) NEB SCH ×2 (08:17→11:13)
[2022-01-26] MEDS ORDERED: AMIODARONE 200 MG TAB (PACERONE) PO SCH (09:00)
[2022-01-26 09:24] LABS: ALBUMIN 2.7 GM/DL (3.2-5.2); ALT/SGPT 32 U/L (12-78); BILIRUBIN,TOTAL 0.6 MG/DL (0.2-1.0); BLOOD UREA NITROGEN 17 MG/DL (7-18); CARBON DIOXIDE LEVEL 30 MEQ/L (21-32); CHLORIDE LEVEL 104 MEQ/L (98-107); CREATININE FOR GFR 0.66 MG/DL (0.55-1.30); GLOMERULAR FILTRATION RATE > 60.0 (>32); GLUCOSE, FASTING 81 MG/DL (70-100); MAGNESIUM LEVEL 1.9 MG/DL (1.8-2.4); POTASSIUM SERUM 4.9 MEQ/L (3.5-5.1); SODIUM LEVEL 142 MEQ/L (136-145); TOTAL PROTEIN 5.9 GM/DL (6.4-8.2)
[2022-01-26] MEDS ORDERED: AMIO200T49 PO (10:59)
== END 2022-01-26 13:14 | disposition home or self-care (01) ==
LOC: M ED 19:15 → M ED INP 01-25 03:17 → M PCU 01-25 05:40
PROVIDERS: ADMIT Internal Medicine; ATTEND Internal Medicine
DX: I47.2 Ventricular tachycardia (principal); Z95.810 Presence of automatic (implantable) cardiac defibrillator; R74.8 Abnormal levels of other serum enzymes; I50.40 Unspecified combined systolic (congestive) and diastolic (congestive) heart failure; I48.91 Unspecified atrial fibrillation; J90 Pleural effusion, not elsewhere classified; I25.2 Old myocardial infarction; J96.10 Chronic respiratory failure, unspecified whether with hypoxia or hypercapnia; J44.9 Chronic obstructive pulmonary disease, unspecified; Z99.81 Dependence on supplemental oxygen; E11.9 Type 2 diabetes mellitus without complications; I11.0 Hypertensive heart disease with heart failure; I25.10 Atherosclerotic heart disease of native coronary artery without angina pectoris; Z95.1 Presence of aortocoronary bypass graft; Z87.19 Personal history of other diseases of the digestive system; Z79.899 Other long term (current) drug therapy; Z79.02 Long term (current) use of antithrombotics/antiplatelets; Z88.8 Allergy status to other drugs, medicaments and biological substances; Z66 Do not resuscitate
CPT/HCPCS: 36415; 71045; 80048; 80053; 80076; 82550; 82553; 83605; 83735; 83880; 84439; 84443; 84484; 85025; 85610; 85730; 87040; 87631; 93005; 93041; 93306; 94640; 94760; 96365; 96366; 97161; 97165; 99285; G0378; J0282; J1815